=== PATIENT | female | born 1985 | race Caucasian/White ===

== ENCOUNTER 2019-11-30 08:27 | Outpatient (CLI) | payer OTHER ==
--- NOTE | 2019-11-30 09:47 | MMO ---
Bilateral MAMMO Bilat Diag [facility]. CLINICAL HISTORY: Patient is 34 years old and is seen for diagnostic exam. The patient has the following family history of breast cancer: maternal aunt and paternal aunt. The patient has no personal history of cancer. VIEWS: The views performed were: bilateral craniocaudal with tomosynthesis; bilateral mediolateral oblique with tomosynthesis; and bilateral mediolateral with tomosynthesis. FILMS COMPARED: The present examination has been compared to a prior imaging study performed at [facility] on 11/30/2019. This study has been interpreted with the assistance of computer-aided detection. MAMMOGRAM FINDINGS: There are scattered fibroglandular densities. Finding 2: There is a round mass measuring 6 millimeters with circumscribed margins seen in the upper-inner region of the left breast. solid In the right breast, there are no suspicious masses, calcifications or areas of architectural distortion. IMPRESSION: FINDING 1: FINDING IN THE RIGHT BREAST IS BENIGN. NO MAMMOGRAPHIC OR ULTRASOUND FINDING TO ACCOUNT FOR THE PALPABLE FINDING. FINDING 2: MASS IN THE LEFT BREAST IS SUSPICIOUS. AN ULTRASOUND-GUIDED BREAST BIOPSY IS RECOMMENDED. THE RESULTS OF THIS EXAM WERE SENT TO THE PATIENT. ACR BI-RADS Category 4 - Suspicious abnormality - biopsy should be considered MAMMOGRAPHY NOTE: 1. A negative mammogram report should not delay a biopsy if a dominant of clinically suspicious mass is present. 2. Approximately 10% to 15% of breast cancers are not detected by mammography. 3. Adenosis and dense breasts may obscure an underlying neoplasm. Reported by: ROSY ARAGON MD Electonically Signed: [id number]
--- NOTE | 2019-11-30 11:00 | ULT ---
RIGHT BREAST ULTRASOUND: HISTORY: Patient initially had a palpable finding in the right breast at approximately the 5 o'clock region, a lthough now at the actual time of the exam this is no longer palpable. FINDINGS/IMPRESSION: Ultrasound evaluation of the right breast at the 5 o'clock region demonstrates no evidence for solid or cystic mass or other abnormality to account for the previously noted prior palpable finding. POS: OFF
--- NOTE | 2019-11-30 11:09 | ULT ---
LEFT BREAST ULTRASOUND: HISTORY: Evaluation of a mass seen on mammogram in the inner upper left breast. There is a solid hypoechoic slightly microlobulated mass in the 10 o'clock position of the left breas t 2 cm from the nipple accounting for the mammographic finding measuring 0.4 x 0.5 cm in size. This mass does not have a characteristic appearance of a benign fibroadenoma. For this reason, ultrasound -guided biopsy is recommended for this solid mass. IMPRESSION: BIRADS category 4, suspicious finding. Ultrasound-guided biopsy of this suspicious solid mass of the left breast is recommended. Findings were discussed with the patient who is in agreement. The patient is initially scheduled for the ultrasound-guided biopsy this afternoon dependent upon rec eiving confirmation from the ordering physician. CODE CR POS: OFF
--- NOTE | 2019-11-30 13:47 | MMO ---
FILMS COMPARED: The present examination has been compared to a prior imaging study performed at [facility] on 11/30/2019. MAMMOGRAM FINDINGS: There are scattered fibroglandular densities. left inner IMPRESSION: FINDING IN THE LEFT BREAST IS CONFIRMED UTILIZING POST PROCEDURE MAMMOGRAM. Reported by: ROSY ARAGON MD Electonically Signed: [id number]
--- NOTE | 2019-11-30 13:47 | MMO ---
FILMS COMPARED: The present examination has been compared to a prior imaging study performed at [facility] on 11/30/2019. MAMMOGRAM FINDINGS: There are scattered fibroglandular densities. left inner IMPRESSION: FINDING IN THE LEFT BREAST IS CONFIRMED UTILIZING POST PROCEDURE MAMMOGRAM. Reported by: ROSY ARAGON MD Electonically Signed: [id number]
--- NOTE | 2019-12-01 10:56 | ULT ---
PROCEDURE: US Breast Bx US Guided PROVIDED CLINICAL HISTORY: Mass left breast on mammographic and sonographic evaluation. Biopsy recommended. COMPARISON: Left breast ultrasound 11/30/2019. TECHNIQUE: The procedure including the risks and complications were explained to the patient, and informed conse nt was obtained. Limited sonographic evaluation of the left breast was performed. The hypoechoic mass 10:00 position left breast was localized, and the area was marked and then meticulously prepped and draped in usual sterile fashion. The skin and subcutaneous tissues were infiltrated with buffered 1% lidocaine for local anesthesia. A small skin incision was made. Utilizing concurrent real-time ultrasound guidance, a 14-gauge biopsy needle was advanced. A total of 5 core needle biopsy specimens were obtained utilizing the 14- gauge biopsy needle. A biopsy marker clip was then deployed at site of biopsy. Hemostasis was achieved with direct pressur e, and a dry sterile dressing was placed. A postprocedure mammogram was performed, and the biopsy marker clip is located at the site of the mas s on mammographic evaluation and correlates with the finding on sonographic evaluation. IMPRESSION: 1. Technically successful ultrasound guided biopsy left breast mass. 2. Technically successful biopsy marker clip placement left breast.
== END 2019-11-30 08:28 | disposition home or self-care (01) ==
LOC: BICMAMMO 08:27
PROVIDERS: ATTEND Student in an Organized Health Care Education/Training Program
DX: N63.20 Unspecified lump in the left breast, unspecified quadrant (principal); N63.10 Unspecified lump in the right breast, unspecified quadrant
CPT/HCPCS: 19083; 77066; 88305; 88341; 88342; G0279